=== PATIENT | male | born 1990 | race Two or more races ===

== ENCOUNTER 2018-09-23 11:14 | Emergency (ER) | payer OTHER ==
[~2018-09-23] VITALS: Ht 129.5 cm; Wt 24.9 kg
[2018-09-23] MEDS ORDERED: SODIUM CHLORIDE 0.9% 500 ML IVB ONE (11:49)
[2018-09-23] MEDS ORDERED: cefTRIAXone 1GM/50ML D5W 50 ML IV ONE (12:00)
[2018-09-23] MEDS ORDERED: FLEET ENEMA(ADULT) 135 ML PR ONE (14:30)
[2018-09-23 14:36] LABS: Basophils # (auto) 0 uL; Basophils % (auto) 0.3 % (0.0-2.0); Eosinophils # (auto) 0 uL; Monocytes # (auto) 0.7 uL; Neutrophils # (auto) 6.8 uL; Nucleated Red Blood Cells % 0.2 %; White Blood Cell 8.3 10^3/uL (4.4-10.8)
[2018-09-23 14:38] LABS: Eosinophils % (auto) 0.1 % (0.0-7.0); Hemoglobin 18.4 g/dL (13.5-17.5); Lymphocytes # (auto) 0.9 uL; Lymphocytes % (auto) 10.5 % (10.0-50.0); Mean Corpuscular Hemoglobin 32.1 pg (28.0-32.0); Mean Corpuscular Volume 100.2 fL (80.0-100.0); Neutrophils % (auto) 81.1 % (37.0-80.0); Platelet Count (auto) 260 10^3/uL (140-450); Red Blood Cells 5.74 10^6/uL (4.5-5.90); Red Cell Distribution Width 15.5 % (11.8-14.3)
[2018-09-23 14:41] LABS: Hematocrit 57.5 % (41.0-53.0)
[2018-09-23 14:50] LABS: Lactic Acid w/Reflex 3.6 mmol/L (0.4-2.0)
[2018-09-23] MEDS ORDERED: IOHEXOL 300 MG/ML 100ML BOTTLE IJ ONE (15:16)
[2018-09-23 15:17] LABS: Urine Bacteria NONE SEEN /hpf (None Seen); Urine Blood 2+ /uL (Negative); Urine Mucus MODERATE (None Seen); Urine Specific Gravity 1.025 (1.001-1.035); Urine WBC 476 /hpf (0 - 3); Urine WBC Clumps PRESENT /hpf (None Seen)
[2018-09-23 16:24] LABS: Calcium 7.8 mg/dL (8.5-10.1)
[2018-09-23 16:27] LABS: Bilirubin, Total 0.3 mg/dL (0.2-1.0)
[2018-09-23 16:55] VITALS: BP 129/83
== END 2018-09-23 17:18 | disposition left against medical advice (07) ==
LOC: ER 11:17
DX: J69.0 Pneumonitis due to inhalation of food and vomit (principal); K80.20 Calculus of gallbladder without cholecystitis without obstruction; K56.41 Fecal impaction; D72.829 Elevated white blood cell count, unspecified; Q05.9 Spina bifida, unspecified; Z88.6 Allergy status to analgesic agent
CPT/HCPCS: 36415; 71045; 74176; 74177; 80053; 81001; 83605; 83735; 85025; 87040; 94761; 96365; 99285; J0696; J7030; Q9967